=== PATIENT | female | born 1980 | race Caucasian/White ===

== ENCOUNTER 2019-04-13 09:57 | Emergency (ER) | payer MEDICAID ==
[~2019-04-13] VITALS: Ht 160 cm; Wt 69.2 kg
[~2019-04-13 09:57] MED LIST: CEPH500T6 PO; PREN1TAB49 PO
[2019-04-13 10:04] VITALS: Ht 160 cm; Wt 69.2 kg
[2019-04-13] MEDS ORDERED: KETOROLAC 30 MG INJ IM STA (12:04)
[2019-04-13] MEDS ORDERED: CYCL10TA7 PO (14:44)
[2019-04-13] MEDS ORDERED: NAPR-985 PO (14:44)
--- NOTE | 2019-04-13 14:46 | ERD ---
ER Documentation Chief Complaint Chief Complaint BACK PAIN X 4 DAYS HPI This is a 38-year-old female patient who presents the emergency room with complaint of bilateral lower back to a pain x3 weeks. No trauma. No dysuria, no hematuria, no fever, no vomiting or diarrhea. Intermittent nausea. 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 No chronic medical conditions. No recent travel, no sick contacts. Currently on menstrual cycle. ROS All systems reviewed and are negative except as per history of present illness. Medications Home Meds Active Scripts Naproxen* (Naprosyn*) 500 Mg Tablet, 500 MG PO BID PRN for PAIN AND/OR INFLAMMATION, #30 TAB Prov:SHEILA DECKER [employer]ER 04/13/19 Cyclobenzaprine Hcl* (Cyclobenzaprine Hcl*) 10 Mg Tablet, 10 MG PO TID for 5 Days, #10 TAB Prov:SHEILA DECKER [employer] 04/13/19 Reported Medications Vits W-Ca,Fe,Fa(<1MG) () 1 Tab Tablet, 1 TAB PO DAILY 01/30/12 Cephalexin Monohydrate (Cephalexin) 500 Mg Tablet, 500 MG PO TID 01/30/12 Allergies Allergies: Coded Allergies: No Known Allergy (Verified , NONE, 01/30/12) PMhx/Soc History of Surgery: Yes (4 , Appendectomy) Anesthesia Reaction: No Hx Neurological Disorder: No Hx Respiratory Disorders: No Hx Cardiac Disorders: No Hx Psychiatric Problems: No Hx Miscellaneous Medical Probl: No (DENIES) Hx Alcohol Use: No Hx Substance Use: No Hx Tobacco Use: No Smoking Status: Never smoker FmHx Family History: No diabetes, No coronary disease, No other Physical Exam Vitals Vital Signs Date Temp Pulse Resp B/P (MAP) Pulse Ox O2 O2 Flow FiO2 Time Delivery Rate 04/13/19 98.0 76 16 120/74 100 Room Air 14:52 (89) 04/13/19 97.3 74 18 117/66 100 10:04 (83) Physical Exam Const: No acute distress Head: Atraumatic Eyes: Normal Conjunctiva, PERRL ENT: Normal External Ears, Nose and Mouth. Neck: Full range of motion. No meningismus. No lymphadenopathy Resp: Clear to auscultation bilaterally Cardio: Regular rate and rhythm, no murmurs Abd: Soft, non tender, non distended. Normal bowel sounds Skin: No petechiae or rashes Back: No midline or flank tenderness, no CVT Back Exam: Skin: No bruising or rash Compartments: Soft, tenderness with palpation over musculature of R/L flank Motor: Normal flexion and extension of bilateral hip/knee/ankle/foot, no ataxia, normal heel-toe test Sensation: Intact to light touch throughout, no paresthesia, neg straight leg test Bones: No midline TTP Ext: No cyanosis, or edema Neur: Awake and alert Psych: Normal Mood and Affect Results 24 hrs Laboratory Tests Test 04/13/19 12:16 04/13/19 12:17 Bedside Urine pH (LAB) 5.5 Bedside Urine Protein (LAB) Negative Bedside Urine Glucose (UA) Negative Bedside Urine Ketones (LAB) Negative Bedside Urine Blood 3+ Bedside Urine Nitrite (LAB) Negative Bedside Urine Leukocyte Esterase (L Negative POC Beta HCG, Qualitative NEGATIVE Current Medications Medications Dose Sig/Rush Start Time Status Last (Trade) Ordered Route PRN Stop Time Admin Dose Reason Admin Ketorolac 30 mg ONCE STAT 04/13/19 DC 04/13/19 Tromethamine IM 12:04 12:26 (Toradol) 04/13/19 12:06 Patient on menstrual cycle Procedures/MDM Is a 38-year-old female patient presents emergency room with lower back pain x3 weeks. ED COURSE: The patient was stable throughout ED course. I kept the patient and/or family informed of laboratory results throughout the ED course. DIAGNOSTIC IMAGING: Not indicated PROCEDURES: None. MEDICATIONS GIVEN: Toradol Patient tolerated medication well with no adverse reactions. Patient reported improvement in pain. MDM: Musculoskeletal low-backpain: Patient is able to ambulate to treatment area without assistance. Patient is seated on the stretcher without obvious distress. There is no surface trauma. No spasms, no step-off or deformity, no CVA tenderness to percussion, patient is able to stand erect. Normal flexion and extension with lateral bending and rotation without limitation. Heel and toe walk with good strength Straight leg raise negative for radiculopathy sensation to light touch is intact. Due to patient's presentation today there is low suspicion for malignancy, infection, epidural abscess, cauda equina syndrome, herniation, AAA. Patient's musculoskeletal symptoms have stabilized while they have been evaluated in the department and are appropriate for outpatient work up. Patient is also provided prescription for NSAID with instructions for use of heat, ice, stretching. DISPOSITION: The patient has been discharge home to follow-up with community physician. Departure Diagnosis: Primary Impression: Lumbar strain Encounter type: initial encounter Qualified Codes: S39.012A - Strain of muscle, fascia and tendon of lower back, initial encounter Condition: Stable Patient Instructions: Back Basics: A Healthy Spine, Back Care Tips, Back Exercises, Lumbar Referrals: [facility] YOU HAVE RECEIVED A MEDICAL SCREENING EXAM AND THE RESULTS INDICATE THAT YOU DO NOT HAVE A CONDITION THAT REQUIRES URGENT TREATMENT IN THE EMERGENCY DEPARTMENT. FURTHER EVALUATION AND TREATMENT OF YOUR CONDITION CAN WAIT UNTIL YOU ARE SEEN IN YOUR DOCTORS OFFICE WITHIN THE NEXT 1-2 DAYS. IT IS YOUR RESPONSIBILITY TO MAKE AN APPOINTMENT FOR FOLOW-UP CARE. IF YOU HAVE A PRIMARY DOCTOR --you should call your primary doctor and schedule an appointment IF YOU DO NOT HAVE A PRIMARY DOCTOR YOU CAN CALL OUR PHYSICIAN REFERRAL HOTLINE AT IF YOU CAN NOT AFFORD TO SEE A PHYSICIAN YOU CAN CHOSE FROM THE FOLLOWING [facility] [address] [facility]. [facility] [address] [employer] [facility] [address] [facility] [address]. [facility] [address]. [facility]. [address] Additional Instructions: Thank you very much for allowing us to participate in your care. Your health and safety is our top priority at [facility]. Call your primary care doctor TOMORROW for an appointment during the next 2-4 days and bring all the information and medications prescribed. Have prescriptions filled and follow precisely the directions on the label. If the symptoms get worse and your provider is unavailable, return to the Emergency Department immediately. USE NAPROSYN DURING THE DAY FOR PAIN USE FLEXERIL AT NIGHT TO HELP RELIEVE MUSCLE SPASM FOR SLEEPING USE HEAT AND/ICE 20-30 MIN 2-3 TIMES PER DAY PERFORM PROVIDED STRETCHING EXERCISES DAILY SHEILA DECKER NP April 13, 2019 14:46
[2019-04-13 14:52] VITALS: BP 120/74; PULSE 76; RESP 16
== END 2019-04-13 14:54 | disposition home or self-care (01) ==
LOC: FTE 09:57
DX: S39.012A Strain of muscle, fascia and tendon of lower back, initial encounter (principal); X58.XXXA Exposure to other specified factors, initial encounter; Y92.9 Unspecified place or not applicable
CPT/HCPCS: 81003; 81025; J1885; 96372